=== PATIENT | female | born 1945 | race Caucasian/White ===

== ENCOUNTER 2019-04-05 13:09 | Day surgery (SDC) | payer MEDICARE, OTHER ==
[~2019-04-05] VITALS: Ht 152.4 cm; Wt 61.4 kg
[~2019-04-05 13:09] MED LIST: ASPI-515 PO; CHOL200074 PO; GLUC1CAP48 PO; LEVO150T5 PO; MELO15TA24 PO; MULT-298 PO; OMEP20TA62 PO; SIMV40TA3 PO
[2019-04-05] MEDS ORDERED: DIPHENHYDRAMINE 50 MG/ML, 1ML IVPush ONE (14:00)
[2019-04-05 14:05] VITALS: BP 116/69
[2019-04-05] MEDS ORDERED: AZAT50TA9 PO (14:13)
[2019-04-05] MEDS ORDERED: PRED5TAB PO (14:18)
[2019-04-05] MEDS ORDERED: CALC-112 PO (14:18)
[2019-04-05] MEDS ORDERED: DIPHENHYDRAMINE 50 MG/ML, 1ML ONE (14:21)
[2019-04-05] MEDS ORDERED: MIDAZOLAM 1 MG/ML, 2ML ONE (16:04)
[2019-04-05] MEDS ORDERED: FENTANYL PF 100 MCG/2ML ONE (16:04)
== END 2019-04-05 19:27 | disposition home or self-care (01) ==
LOC: CACL 13:09 → 5SO 17:23 → CACL 19:27
PROVIDERS: ATTEND Internal Medicine Cardiovascular Disease
DX: I27.20 Pulmonary hypertension, unspecified (principal); Z79.82 Long term (current) use of aspirin; Z88.5 Allergy status to narcotic agent; Z88.0 Allergy status to penicillin
CPT/HCPCS: 93451; 99156; 99157; C1894; J1200; J2250; J3010; G0378